=== PATIENT | male | born 1975 | race Caucasian/White ===

== ENCOUNTER 2022-02-27 03:03 | Observation (INO) ==
[2022-02-27] MEDS ORDERED: MORPHINE 2 MG/1 ML SYRINGE IV STA (03:23)
[2022-02-27] MEDS ORDERED: ASPIRIN 325 MG TABLET PO STA (03:23)
[2022-02-27] MEDS ORDERED: NITROGLYCERIN 2% OINT 1 INCH/GM PACK TOP STA (03:23)
[2022-02-27] MEDS ORDERED: METOPROLOL TARTRATE 25 MG TABLET PO STA (03:23)
[2022-02-27] MEDS ORDERED: ONDANSETRON 4 MG/2 ML VIAL IV STA (03:23)
[2022-02-27 03:40] LABS: Basophils % 0.6 % (0.0-0.8); Eosinophils # 0.1 10*3/uL (0.0-0.87); Hemoglobin 15.1 GM/DL (14.0-18.0); Immature Granulocytes % 0.1 %; Immature Granulocytes Absolute 0.01 #; Lymphocytes # 2.2 10*3/uL (1.4-4.0); Lymphocytes % 30.4 % (21.2-54.2); Mean Corpuscular HGB Conc 34.3 GM/DL (32-36); Mean Corpuscular Volume 97.1 FL (87-102); Mean Platelet Volume 9.8 FL (9.6-12.0); Monocytes # 0.7 10*3/uL (0.11-0.8); Monocytes % 10.2 % (1.7-12.7); Neutrophils % 56.7 % (38.7-73.9); Platelet Count 230 T/CUMM (130-400); Red Blood Count 4.53 MC/CUMM (3.8-5.5); Red Cell Distribution Width 12.3 % (9.3-17.3); White Blood Count 7.1 T/CUMM (4-12)
[2022-02-27 04:10] LABS: Albumin 3.5 G/DL (3.4-5.0); Bilirubin,Total 0.6 MG/DL (0.20-1.00); Calcium 8.9 MG/DL (8.5-10.1); Potassium 3.6 MMOL/L (3.5-5.1); Total Protein 6.5 G/DL (6.4-8.2)
[2022-02-27] MEDS ORDERED: ENOXAPARIN 100 MG/ML SYRINGE SUBCUT STA (04:40)
[2022-02-27] MEDS ORDERED: ONDANSETRON 4 MG/2 ML VIAL IV PRN (05:07)
[2022-02-27] MEDS ORDERED: GLUCAGON 1 MG VIAL IM PRN (05:07)
[2022-02-27] MEDS ORDERED: DEXTROSE 10% 250 ML BAG IV PRN (05:07)
[2022-02-27] MEDS ORDERED: MORPHINE 2 MG/1 ML SYRINGE IV PRN (05:07)
[2022-02-27] MEDS ORDERED: ACETAMINOPHEN 325 MG TABLET PO PRN (05:07)
[2022-02-27] MEDS ORDERED: LACTATED RINGERS 1,000 ML IV SCH (05:30)
[2022-02-27 07:39] LABS: Risk Ratio 6.3; Thyroid Stimulating Hormone 2.87 uIU/ml (0.358-3.74)
[2022-02-27] MEDS ORDERED: ESCITALOPRAM 10 MG TABLET PO SCH (09:00)
[2022-02-27] MEDS ORDERED: PANTOPRAZOLE 40 MG TABLET PO SCH (09:00)
[2022-02-27 10:51] VITALS: BP 110/73
== END 2022-02-27 10:39 | disposition home or self-care (01) ==
LOC: N.EDINP 03:03 → N.ED 03:03 → N.EDINP 10:40
PROVIDERS: ADMIT Internal Medicine Geriatric Medicine; ATTEND Internal Medicine Geriatric Medicine